=== PATIENT | male | born 1950 | race Caucasian/White ===

== ENCOUNTER 2019-02-22 08:46 | Inpatient (IN) | payer OTHER ==
[~2019-02-22] VITALS: Ht 164.1 cm; Wt 84.4 kg
[2019-02-22] VITALS (21 sets, daily range): BP systolic 117–160; BP diastolic 66–103; PULSE 65–102; RESP 10–22; Ht 164.1 cm; Wt 84.4 kg
[~2019-02-22 08:46] MED LIST: ASPI-903 PO; CARV12.579 PO; CLOP75TA27 PO; CYCL10TA7 PO; FINA5TAB4 PO; HYDR-3671 PO; LOSA25TA12 PO; TAMS-14 PO; TRAM50TA2 PO
[2019-02-22] MEDS ORDERED: LACTATED RINGER'S 1,000 ML IV SCH (14:00)
[2019-02-22] MEDS ORDERED: BUPIVACAINE 0.5%/EPI (SDV) 10 ML INJ ONE (15:19)
[2019-02-22] MEDS ORDERED: BUPIVACAINE 0.5% (SDV) 30 ML INJ ONE (15:19)
[2019-02-22] MEDS ORDERED: THROMBIN 20,000 UNIT VIAL ONE (15:19)
[2019-02-22] MEDS ORDERED: GELATIN SIZE 100 SPONGE ONE (15:19)
[2019-02-22] MEDS ORDERED: LIDOCAINE 0.5% (SDV) 50 ML INJ ONE (15:20)
[2019-02-22] MEDS ORDERED: POLYMYXIN/BACITRACIN 1L IRRIG ONE (15:20)
[2019-02-22] MEDS ORDERED: ONDANSETRON 4 MG INJ IV PRN ×2 (15:30→21:00)
[2019-02-22] MEDS ORDERED: DIPHENHYDRAMINE 50 MG INJ IV PRN (15:30)
[2019-02-22] MEDS ORDERED: HYDROmorphONE 1 MG/5 ML IV SYRINGE IV PRN ×3 (15:30)
[2019-02-22] MEDS ORDERED: FENTAnyl 50 MCG/ML VIAL IV PRN ×3 (15:30)
[2019-02-22] MEDS ORDERED: MEPERIDINE 25 MG INJ IV PRN (15:30)
[2019-02-22] MEDS ORDERED: DESFLURANE 15 MIN ONE (15:40)
[2019-02-22] MEDS ORDERED: DEXAMETHASONE 4 MG/ML 5 ML INJ ONE (15:41)
[2019-02-22] MEDS ORDERED: CEFAZOLIN 1 GM INJ ONE (15:41)
[2019-02-22] MEDS ORDERED: METOCLOPRAMIDE 10 MG INJ ONE (15:41)
[2019-02-22] MEDS ORDERED: ROCURONIUM 50 MG INJ ONE (15:41)
[2019-02-22] MEDS ORDERED: PROPOFOL 20 ML ONE (15:41)
[2019-02-22] MEDS ORDERED: HYDROmorphONE 2 MG/ML SYG ONE (16:18)
[2019-02-22] MEDS ORDERED: HEMOSTATIC MATRIX SYG ZFS ONE (16:53)
[2019-02-22] MEDS ORDERED: METOPROLOL 5 MG INJ ONE (16:58)
[2019-02-22] MEDS ORDERED: BISACODYL 10 MG SUPP PR PRN (21:00)
[2019-02-22] MEDS ORDERED: NALOXONE (0.4 MG/ML) INJ IV PRN (21:00)
[2019-02-22] MEDS ORDERED: HYDROmorphONE 0.5 MG/0.5 ML SYG IV PRN (21:00)
[2019-02-22] MEDS: D5W-0.45 NACL + KCL 20 MEQ 1,000 ML IV SCH (23:00)
[2019-02-22] MEDS: LOSARTAN 25 MG TAB PO SCH (23:07)
[2019-02-22] MEDS: CEFAZOLIN 1 GM/50 ML (PMX) 50 ML IVPB SCH (23:08)
[2019-02-23 00:03] VITALS: BP 118/78; PULSE 88; RESP 18
[2019-02-23] MEDS: HYDROCODONE/APAP (10/325) TAB PO SCH ×3 (00:16→05:00)
[2019-02-23] MEDS: D5W-0.45 NACL + KCL 20 MEQ 1,000 ML IV SCH ×2 (00:16→09:00)
[2019-02-23 01:00] VITALS: BP 119/75; PULSE 87; RESP 17
[2019-02-23 07:29] VITALS: BP 109/71; PULSE 63; RESP 20
[2019-02-23] MEDS: traMADol 50 MG TAB PO SCH ×3 (08:13→16:07)
[2019-02-23] MEDS: CYCLOBENZAPRINE 10 MG TAB PO SCH ×2 (08:14→12:07)
[2019-02-23] MEDS: CEFAZOLIN 1 GM/50 ML (PMX) 50 ML IVPB SCH ×2 (08:15→15:27)
[2019-02-23] MEDS ORDERED: DOCUSATE SODIUM 100 MG CAP PO SCH (09:00)
[2019-02-23] MEDS ORDERED: FINASTERIDE 5 MG TAB PO SCH (09:00)
[2019-02-23] MEDS ORDERED: FAMOTIDINE 20 MG INJ IV SCH (09:00)
[2019-02-23] MEDS ORDERED: TAMSULOSIN (SR) 0.4 MG CAP PO SCH (09:00)
[2019-02-23] MEDS: LOSARTAN 25 MG TAB PO SCH (09:06)
[2019-02-23 15:36] VITALS: BP 101/57; PULSE 69; RESP 18
== END 2019-02-23 17:30 | disposition home or self-care (01) | DRG 460 ==
LOC: REC 08:46 → UNDOADMIN 08:46 → REC 12:26 → MS1 21:45
PROVIDERS: ADMIT Neurological Surgery; ATTEND Neurological Surgery
PROC: 0SG00AJ Fusion of Lumbar Vertebral Joint with Interbody Fusion Device, Posterior Approach, Anterior Column, Open Approach (ICD-10-PCS; principal; 2019-02-22 14:00)
DX: M51.26 Other intervertebral disc displacement, lumbar region (principal); M51.36 Other intervertebral disc degeneration, lumbar region; M48.061 Spinal stenosis, lumbar region without neurogenic claudication; I25.10 Atherosclerotic heart disease of native coronary artery without angina pectoris; Z98.61 Coronary angioplasty status; Z95.1 Presence of aortocoronary bypass graft; N18.9 Chronic kidney disease, unspecified
CPT/HCPCS: 71045; 72114; 81001; 86850; 86900; 86901; 87086; 97116; 97161; 97530; C1713; J0690; J1100; J1170; J2765; J3010; J3480